=== PATIENT | female | born 1975 | race African-American/Black ===

== ENCOUNTER 2023-07-29 21:46 | Observation (INO) | payer BC, SELFPAY ==
[2023-07-29 16:59] VITALS: BMI 26.1
[2023-07-29 17:01] VITALS: BP 171/101
[2023-07-29 17:31] LABS: % Basophils 0.5 % (0-2); % Eosinophils 2.8 % (0-6); % Immature Granulocytes 0.5 % (0-0.5); % Monocytes 7.1 % (1.7-9.3); % Neutrophils 44.1 % (42.2-75.2); Absolute Eosinophils 0.2 10^3/uL (0-0.7); Absolute Lymphocytes 2.7 10^3/uL (1.2-3.4); Absolute Monocytes 0.4 10^3/uL (0.1-0.6); Absolute Neutrophils 2.7 10^3/uL (1.4-6.5); Hematocrit 40.9 % (37.0-47.0); Hemoglobin 15.1 g/dL (12.0-16.0); Mean Corp Hgb Conc. 36.9 g/dL (33.0-37.0); Mean Corpuscular Hgb 26.1 pg (27.0-31.0); Mean Corpuscular Volume 70.6 fL (81.0-99.0); Mean Platelet Volume 9.6 fL (7.4-10.4); Nucleated Red Blood Cells % 0 %; Platelet Count 488 10^3/uL (130-400); Red Blood Cell Count 5.79 10^6/uL (4.20-5.40); Red Cell Dist. Width 14.9 % (11.5-14.5)
[2023-07-29 17:36] LABS: ALT (SGPT) 29 U/L (0-35); AST (SGOT) 33 U/L (14-36); Albumin 4.1 g/dl (3.5-5.0); Alkaline Phosphatase 73 U/L (38-126); Blood Urea Nitrogen 15 mg/dl (7-17); Carbon Dioxide 29 mmol/L (22-30); Chloride 100 mmol/L (98-107); Estimated Creatinine Clearance 68 ml/min; Glucose 92 mg/dl (70-99); Potassium 3.6 mmol/L (3.5-5.1); Sodium 141 mmol/L (135-145); Total Bilirubin 0.7 mg/dl (0.2-1.3); Total Protein 6.7 g/dl (6.3-8.2); eGFR > 60.00
--- NOTE | 2023-07-29 17:37 | ED.CVA ---
History of Present Illness
General
Chief Complaint: CVA/TIA Symptoms
Source: patient
Exam Limitations: none
Time Seen by Provider: 07/29/23 17:15
Onset of Stroke Symptoms
Onset of symptoms known: Yes
Date of onset of symptoms: 07/29/23
Travel History
Have you had any contact with someone who has COVID-19?: No
Do you have any symptoms of coronavirus? Fever > 100 degrees, chills, cough, shortness of breath, sore throat, loss of taste or smell, muscle aches, or headache?: No
History of Present Illness
History of Present Illness:
See MDM
Past History
Past History
ED Past Medical History: HTN (meds dced '21)
ED Past Surgical History: Gynecological (tubal lig)
Social History
Tobacco: Non-smoker
Alcohol: None
Personal:
Phy Exam
Physical Exam
Physical Exam:
See MDM
NIH Stroke Score
Level of Consciousness: 0 - Alert
LOC questions: 0-Answers both correctly
LOC Commands: 0-Performs both correctly
Best Gaze: 0-Normal
Visual Blanca: 0=Normal, no visual loss
Facial palsy: 0=Normal, symmetrical
Motor - Right Arm: 0=No drift 10 seconds
Motor - Left Arm: 0=No drift 10 seconds
Motor - Right Le-No drift 5 seconds
Motor - Left Le-No drift 5 seconds
Limb Ataxia: 0-Absent
Sensation: 1-Mild loss
Best Language: 0-No aphasia
Dysarthria: 0-Normal
Extinction and Inattention: 0-No abnormality
Total Score:: 1
Course
Orders/Labs/Results
Orders:
Orders
07/29/23 17:01
Electrocardiogram (*1) Urgent
Reason for Study: Fatigue / Weakness
EKG- Treatment ONCE
07/29/23 17:12
Complete Blood Count/With Diff Urgent
Comprehensive Metabolic Panel Urgent
07/29/23 17:38
CT Head & Neck Angio W/wo IV Urgent
Comment:
Reason For Exam: intermittent R arm and leg weakness
NEUROLOGY CONSULT Urgent
Consulting Provider: Shey Ferrer
Was physician already notified: Yes
07/29/23 18:10
PTT Routine
Prothrombin Time Routine
07/29/23 19:51
Aspirin Chewable [Low Strength Aspirin] 324 mg PO NOW STA
Clopidogrel Bisulfate [Plavix] 75 mg PO NOW STA
Abnormal Lab Results
07/29/23
17:12
RBC 5.79 H 10^6/uL
(4.20-5.40)
MCV 70.6 L fL
(81.0-99.0)
MCH 26.1 L pg
(27.0-31.0)
RDW 14.9 H %
(11.5-14.5)
Plt Count 488 H 10^3/uL
(130-400)
07/29/23 17:12
07/29/23 17:12
Vital Signs
Initial and Last Documented VS:
Initial Vital Signs
Pulse Resp BP Pulse Ox
79 18 171/101 98
07/29/23 17:01 07/29/23 17:01 07/29/23 17:01 07/29/23 17:01
Last Documented Vital Signs
Pulse Resp BP Pulse Ox
83 26 171/101 98
07/29/23 17:45 07/29/23 17:45 07/29/23 17:01 07/29/23 17:45
MDM/Problems Addressed
Differential Diagnosis Includes:
HPI and MDM Narrative:
47-year-old female presenting with resolved 'slow speech', right arm heaviness and right leg heaviness. She noted the symptoms around 330 today and they lasted 15 minutes. Few minutes later, the symptoms recurred, again lasting only 15 minutes.
That is when she called 911. Patient found to be hypertensive on arrival. She states she is a history of high blood pressure but her doctor took her off medications 2 years ago. Patient states she still has residual tingling on the right side of
her face but denies any other symptoms
Given symptoms, there is concern for rolling TIAs. Neurology made aware who agrees with plan for CT angiogram head and neck. She is not a TNK candidate given the low NIH
Physical exam
General: Well appearing and non-toxic
HEENT: protecting airway. No visual field cut
Neck: appears supple
CV: No evidence of cyanosis. Regular rate and rhythm
Resp: No accessory muscle use
Abd: Non-distended
Extremities: No deformities
Neuro: alert. No extremity weakness. Mild sensory deficit to right side of face
Psych: Normal affect
Skin: Intact
Problems Addressed including Acute and Chronic Conditions affecting care:
1. Rolling TIAs
Acuity: acute
Prognosis: stable
Details: Symptoms appear to be self resolving. Will obtain CT angiogram head and neck. Neurology made aware
Updates
CTA negative. Patient given aspirin and Plavix. Neurology aware. Will admit
Differential Diagnosis (but not limited to): CVA, TIA
Testing considered: Carotid ultrasound will obtain CTA
Drug therapy (if applicable): OTC meds, please see d/c instruction regarding Rx drugs
Amount and/or Complexity of Data Reviewed
Clinical info obtained from: Patient
External data reviewed: N/A
Labs I independently reviewed (but not limited to): White blood cell count normal
Radiology: The CT scan was personally and independently reviewed. In addition, official CT report reviewed.
Pulse Ox: not hypoxic
EKG independently reviewed: Sinus rhythm, normal axis, no STEMI
Stone Finisher: N/A
Critical Care: N/A
Risk of Complication:
Social Determinants of health: Good social support
Discussed with other providers: Hospitalist, neurologist
Escalation of Care includes Admit/Obs: Given the rolling TIAs, will admit
Occasional wrong word or 'sound a like' substitutions may have occurred due to the inherent limitations of voice recognition software. Read the chart carefully and recognize, using context, where substitutions have occurred.
*Critical Care Note
Total Time (30-74mins, 75-104mins- exclusive of procedures): Not Applicable
ED Attending Note
-
Portions of this chart may have been created with voice recognition software.� Occasional wrong word or��sound alike� substitutions may have occurred due to the inherent limitations of voice recognition software.
Discharge Plan
Departure
Patient Disposition: Admit
Date of Disposition: 07/29/23
Time of Disposition: 19:56
Admit to: IMU
Presentation/result/management discussed w/ accepting MD/DO: Hospitalist
Discharge Problem:
Brain TIA
Referrals:
Marek Ortega MD [Family Provider] -
Interventions
Interventions:
*Risk Screen - Suicide Last Done: 07/29/23 17:17
*General Assessment Last Done: 07/29/23 17:17
*Neglect/Abuse Screening Last Done: 07/29/23 17:17
ED- Fall Risk Assessment Last Done: 07/29/23 17:17
*ED COVID-19 Vaccine History Last Done: 07/29/23 17:17
ED- Pulmonary Assessment Last Done: 07/29/23 17:17
ED- Neurological Assessment Last Done: 07/29/23 17:17
ED- Cardiac Assessment Last Done: 07/29/23 17:17
ED Swallowing Screen Last Done: 07/29/23 17:17
[2023-07-29 18:00] VITALS: BP 146/97
[2023-07-29 18:26] LABS: APTT 25.1 Sec (23.4-35.0); INR 1.04; PT 13.8 Sec (11.4-14.6)
--- NOTE | 2023-07-29 20:25 | HPS.HSE ---
Addendum entered and electronically signed by Joey Gaming DO 07/29/23 22:06:
Patient seen and examined independently. Agree with findings and plan as set forth by HELIO Paris.
Patient is a 47y F with PMH significant for hypertension - no longer on medications - who presents to ED c/o RUE 'heaviness' and pressure, R facial tingling and numbness and R ocular pressure / headache. Patient states that symptoms occurred
around 3:30 PM and lasted for a few minutes. She drank some milk and her symptoms resolved. They returned only a few minutes later and this time lasted for about 15 minutes. She called EMS at that time. Symptoms have since fully resolved again.
Patient denies any prior history of similar symptoms. She states that she was exposed a few weeks ago to a patient with RSV. Since that time she has been having cough / congestion, posterior headache / neck stiffness and fatigue.
She was treated with a 5-day course of prednisone and felt better while on it. Symptoms returned soon after this was completed however.
Patient was most recently started on amoxicillin for prescribed 10 days course for her symptoms. She is on Day # 3.
Ass:
R Numbness / Tingling
URI - Likely Viral
Hypertension
GERD
Plan:
Observe overnight for further evaluation and treatment.
Follow frequent neurologic exams - q2 hours per Neuro recommendations.
MRI brain and Neuro evaluation in the AM.
ASA / Plavix for now.
Monitor BP and resume PO medications if needed for BP control (already much improved from initial arrival).
Would hold further abx for what is likely a viral respiratory infection.
Monitor for any new / recurrent symptoms.
Original Note:
Family Physician
-
Family Physician: Marek Ortega
Chief Complaint
-
right sided weakness
History of Present Illness
47 year old with PMH for HTN presented to us with right sided weakness, numbness, heaviness tingling since this afternoon. stated slurred speech. she could not clearly see with her right eye. first episode lasted for 15 minutes and after 5 minutes
she felt it again which lasted for 10minutes. denied MCMILLAN, dizzy. denied chest pain, sob. denied abdominal pain, n,v, d. denied dysuria or hematuria.
patient was prednisone for five days for URI,sinusitis. now she is on amoxicillin
CTA negative. recived asa and plavix in ER. admitting for further management.
Medical History
Past Medical History
Past Medical History: Reports Other
Additional Past Medical History:
htn
GERD
Past Surgical History: Reports Other
Additional Past Surgical History:
tubal ligation
Social History
Tobacco: Non-smoker
Alcohol: None
Drug: None
Personal:
Living: With Family
Family History
Family History: Not pertinent
Allergies / Home Medications
Allergies reflects when Allergies were last updated in [facility].
Home Medications with original date entered in [facility]
Allergy/Medication List:
Allergies
Allergy/AdvReac Type Severity Reaction Status Date / Time
No Known Allergies Allergy Verified 07/29/23 17:06
Review of Systems
-
Constitutional: Reports No Symptoms
EENT: Reports No Symptoms
Respiratory: Reports No Symptoms
Cardiac: Reports No Symptoms
Abdomen/GI: Reports No Symptoms
: Reports No Symptoms
Musculoskeletal: Reports No Symptoms
Skin: Reports No Symptoms
Neurological: Reports Weakness, Numbness and Other (right sided)
Endocrine: Reports No Symptoms
Hematologic/Lymphatic: Reports No Symptoms
Psych: Reports No Symptoms
Physical Exam
Vital Signs
Vital Signs
Pulse Resp BP Pulse Ox
83 26 171/101 98
07/29/23 17:45 07/29/23 17:45 07/29/23 17:01 07/29/23 17:45
Physical Exam
General: Well Developed, Well Nourished and No Apparent Distress
HEENT: NormoCephalic, Moist mucous membranes and Atraumatic
Respiratory: Clear
Cardiac: S1/S2 and Regular Rhythm; No Murmur or Rub
GI: Soft, Non Tender, Non Distended and Normal Bowel Sounds; No Organomegaly
Rectal: Deferred by Provider
Musculoskeletal: No Clubbing, No Cyanosis and No Edema
Skin: No Rash
Neuro: AO x 3 and Nonfocal/grossly intact
Psych: Calm
Laboratory Results
-
07/29/23 17:12
07/29/23 17:12
Laboratory Results
PT 13.8 Sec (11.4-14.6) 07/29/23 18:10
INR 1.04 07/29/23 18:10
APTT 25.1 Sec (23.4-35.0) 07/29/23 18:10
Total Bilirubin 0.7 mg/dl (0.2-1.3) 07/29/23 17:12
AST 33 U/L (14-36) 07/29/23 17:12
ALT 29 U/L (0-35) 07/29/23 17:12
Alkaline Phosphatase 73 U/L (38-126) 07/29/23 17:12
Data Reviewed
-
CT Scan: Report Reviewed by me
Lab Data: Labs Reviewed by me
Impression/Plan
-
#right sided weakness r/o acute CVA/TIA
-CTA negative
-aspirin, Plavix continued
-a1c.lipid profile
-statin continued
-allow permissive HTN
-PT/OT
-neuro consult
#HTN
-BP elevated in ER
-hydralazine prn if BP
#GERD
-PPI continued
#URI
-was on prednisone
-amoxicillin held
#DVT prophylaxis
-scd
#CODE status
-full
[2023-07-29] MEDS: LOW STRENGTH ASPIRIN 324 MG PO (20:36)
[2023-07-29] MEDS: PLAVIX 75 MG PO (20:36)
[2023-07-29 21:00] VITALS: BP 141/96
[2023-07-29 22:00] VITALS: BP 129/93
[2023-07-29 22:38] VITALS: BP 144/95; BMI 25.1
--- NOTE | 2023-07-29 22:50 | PTCARENOTE ---
Assumed care of Pt from ED RN. NIHSS handoff done at bed side. Pt AAOX3 appears to be comfortable, Vitals stable at this time. Assessment care and vitals as charted.
[2023-07-29] MEDS: LIPITOR 40 MG PO (23:04)
[2023-07-30] VITALS (10 sets, daily range): BP systolic 124–139; BP diastolic 63–109; PULSE 70–72; BMI 25.1
[2023-07-30 05:24] LABS: Hematocrit 42.4 % (37.0-47.0); Hemoglobin 14.8 g/dL (12.0-16.0); Mean Corp Hgb Conc. 34.9 g/dL (33.0-37.0); Mean Corpuscular Hgb 26.1 pg (27.0-31.0); Mean Corpuscular Volume 74.8 fL (81.0-99.0); Platelet Count 404 10^3/uL (130-400); Red Blood Cell Count 5.67 10^6/uL (4.20-5.40); Red Cell Dist. Width 14.7 % (11.5-14.5)
[2023-07-30 05:50] LABS: Blood Urea Nitrogen 11 mg/dl (7-17); Calcium 9.7 mg/dl (8.4-10.2); Carbon Dioxide 31 mmol/L (22-30); Chloride 103 mmol/L (98-107); Estimated Creatinine Clearance 68 ml/min; Glucose 88 mg/dl (70-99); HDL Cholesterol 52 mg/dl; LDL Cholesterol, Calculated 58 mg/dl; Potassium 4.4 mmol/L (3.5-5.1); Sodium 138 mmol/L (135-145); Total Cholesterol 123 mg/dl (50-199); Triglyceride 68 mg/dl (10-149); Very Low Density Lipoprotein 13 mg/dl (0-30); eGFR > 60.00
[2023-07-30] MEDS: LOW STRENGTH ASPIRIN 81 MG PO (10:03)
[2023-07-30] MEDS: PLAVIX 75 MG PO (10:04)
[2023-07-30] MEDS: PROTONIX 40 MG PO (10:04)
--- NOTE | 2023-07-30 10:19 | PTOTSP ---
Speech Therapy
Presentation: Patient was fully oriented and willing to participate. Patient shared that her tongue on the right side continues to have a 'tingling' feeling which does not impact her speech or swallowing.
Swallowing Function: Patient was observed with several bites of regular consistency solids and sips (straw) of thin liquids in which patient appeared to tolerate as he did not exhibit any overt clinical s/sx of aspiration or difficulty with
mastication. Patient denied any dysphagia complaints.
Of note, patient handed [employer] an antibiotic pill bottle from her PCP which she takes 2 times a day. Did not take the medications 07/29 evening. [employer] alerted RN and gave the medications to RN.
Recommendations:
1) Continuation of regular consistency solids and thin liquids
2) Aspiration precautions
3) Medications as tolerated
Plan: [employer] will continue to follow x1 to ensure tolerance of PO recommendations and MRI findings (ordered 07/30); pending hospitalization.
--- NOTE | 2023-07-30 11:25 | PTCARENOTE ---
NIHSS completed =0 she does admit to tingly feeling on right side of tongue. No numbness. +Sensation Bilaterally whole body. See NIHss flowsheet.
--- NOTE | 2023-07-30 13:02 | W.PN.HOSP.TC ---
Today's Communication/Plan
-
Neuro consult pending
Monitor neuro symptoms
Assessment / Plan
Assessment / Plan
47 year old with right sided weakness, numbness, heaviness tingling since this afternoon. stated slurred speech. she could not clearly see with her right eye. first episode lasted for 15 minutes and after 5 minutes she felt it again which lasted for
10minutes. denied MCMILLAN, dizzy. denied chest pain, sob. denied abdominal pain, n,v, d. denied dysuria or hematuria.
1. right sided weakness r/o acute CVA/TIA
-CTA negative, but has possible venous finding
-aspirin, Plavix continued
-a1c.lipid profile
-statin continued
-allow permissive HTN
-PT/OT
-neuro consult pending - if venous finding is real, may need workup for that
2. essential HTN, chronic
-BP elevated in ER
-hydralazine prn if SBP>180
3. GERD, chronic
-PPI continued
4. URI
-was on prednisone
-amoxicillin held
-monitor symptoms
5. DVT prophylaxis
-scd
CODE status -full
Anticipated Discharge: 24 - 48 hours
Subjective/Interval History
-
Date of Service: July 30, 2023
Continues to have tingling on side of right face
Objective Data
-
Labs:
Laboratory Results
07/30/23
04:51
WBC 5.0
Hgb 14.8
Hct 42.4
Plt Count 404 H
Sodium 138
Potassium 4.4
Chloride 103
Carbon Dioxide 31 H
BUN 11
Creatinine 0.9
Glucose 88
Calcium 9.7
Vital Signs:
Vital Signs
Temp Pulse Resp BP Pulse Ox
97.9 F 70 15 135/98 98
07/30/23 11:25 07/30/23 10:02 07/30/23 10:02 07/30/23 10:02 07/30/23 04:00
I&O
07/29/23 07/30/23 07/31/23
06:59 06:59 06:59
Intake Total 440 / 440
Balance 440 / 440
Review of Systems
-
History Source: Patient
All other systems: Reviewed and negative
Physical Exam
-
General: Well Developed, Well Nourished, No Apparent Distress and Comfortable
HEENT: Normocephalic, Atraumatic and Moist Mucous Membranes
Respiratory: Clear to Auscultation
Cardiac: Regular Rhythm and S1/S2
GI: Soft, Nontender and Nondistended
Musculoskeletal: No Clubbing, No Cyanosis and No Edema
Skin: Warm and Dry; Negative Rash or Ulcers
Neuro: Awake, Alert, Oriented and AO x 3
Psych: Calm
Data Reviewed
-
Labs: Labs Reviewed by me
--- NOTE | 2023-07-30 14:13 | CON.NEURO4 ---
Consultation - Neurology 4
-
CONSULTING PHYSICIAN: Carissa
REFERRING PHYSICIAN: Brady
DICTATED BY: Carissa
DATE/TIME OF REQUEST: 07/29/23 in the late evening
DATE/TIME OF CONSULTATION: 07/30/23
Reason for Consultation: stroke
History of Present Illness:
47 year-old female with a PMH of hypertension off meds since 2020 who presented yesterday for RUE heaviness and pressure with R facial tingling and numbness and R ocular pressure/headache. Symptoms began around 330pm and lasted a few minutes. They
returned a few minutes later, lasting 15 mins. She called EMS. The symptoms then resolved. She was admitted to IMU for q2 neurochecks in case her symptoms returned. She notes that her only residual symptoms currently are R tongue tingling. No
prior history of stroke or TIA. She had a migraine last week with some photophobia. No personal or family history of blood clots/hypercoagulable state. Both parents have had strokes.
CTA head/neck was normal. LDL was 58. No smoking history.
Past Medical History: htn--medications discontinued in 2020, ?migraine
Surgical History: tubal ligation
Family History: +h/o stroke in both parents--mom in her 60s, father in his 70s; no family history of hypercoagulable state
Social History: nonsmoker, no ETOH use, , works as a mental health nurse practitioner in [place]
Allergies
No Known Allergies Allergy (Verified 07/29/23 17:06)
Home Medications Table - record
Medication Instructions Recorded Confirmed
amoxicillin 875 mg-potassium 1 tab PO BID Infection 07/29/23 07/29/23
clavulanate 125 mg tablet
omeprazole 20 mg capsule,delayed 20 mg PO DAILY GERD 07/29/23 07/29/23
release
Review of Symptoms:
Patient denies any fever, headache, chest pain, shortness of breath, GI or symptoms.
�Per the HPI.�All systems are reviewed negative except above.
Vital Signs
Temp Pulse Resp BP Pulse Ox
97.9 F 70 15 135/98 98
07/30/23 11:25 07/30/23 10:02 07/30/23 10:02 07/30/23 10:02 07/30/23 04:00
Lab Results
07/30/23 04:51
07/30/23 04:51
PT 13.8 Sec (11.4-14.6) 07/29/23 18:10
INR 1.04 07/29/23 18:10
APTT 25.1 Sec (23.4-35.0) 07/29/23 18:10
Sodium 138 mmol/L (135-145) 07/30/23 04:51
Potassium 4.4 mmol/L (3.5-5.1) 07/30/23 04:51
BUN 11 mg/dl (7-17) 07/30/23 04:51
Glucose 88 mg/dl (70-99) 07/30/23 04:51
Calcium 9.7 mg/dl (8.4-10.2) 07/30/23 04:51
LDL Cholesterol, Calc 58 mg/dl 07/30/23 04:51
HgbA1C pending
Physical Exam:
The patient is afebrile, heart sounds S1 and S2 are regular, and chest is clear to auscultation bilaterally.
NIH Stroke Scale:
I performed the NIH stroke scale on the patient on 07/30/23 at 1300. The patient scored 0 points on the NIH stroke scale assessment.
Neurologic Examination:
The patient is awake, alert and oriented x 3. She is able to follow commands and answer questions appropriately. There is no aphasia or dysarthria. On cranial nerve assessment, pupils are 3 mm bilateral, round and reactive to light and
accommodation. Visual rodríguez are full. Extraocular movements are intact. Facial sensations are intact and bilaterally symmetrical, there is no facial asymmetry. Hearing is intact bilaterally to normal conversation volume. Tongue palate and uvula
are midline. Sternocleidomastoid strengths are full bilaterally. Motor strengths are 5/5 bilateral upper and lower extremities on medical research [place] scale. There is no drift or involuntary movement noted. Deep tendon reflexes are 2+ bilateral
upper and lower extremities and Babinski is absent bilaterally. Sensations of pain, touch, temperature and vibration are intact and bilaterally symmetrical. There was no extinction noted on double simultaneous stimulation. Coordination is intact by
finger to nose bilaterally.
Neuro Imaging:
MRI brain:
'No acute infarct.
Altered signal intensity within superficial cortical cerebral veins near the convexity, as well as along the posterior aspect of the superior sagittal sinus. This may be related to slow flow. Cerebral venous thrombus cannot be excluded in the proper
clinical setting. If indicated, further evaluation/follow-up MR venography may be considered.'
CTA head/neck:
normal
Impression:
LESA PAINTING is a 47 year old F who has presented to the hospital with RUE 'heaviness' and pressure like sensation, R facial tingling and numbness as well as R ocular pressure and headache. All symptoms have resolved beyond a sensation of
tingling on the right side of her tongue.
Differentials for the patient's presentation include:
1. TIA
2. complicated migraine
3. hypertensive urgency with focal neurological deficits
Patient has the following risk factors for their symptoms: htn
IV Tenecteplase/IAT candidacy: not a candidate due to resolution of symptoms; CTA without LVO
Recommendations:
-admitted to IMU for close monitoring, neurochecks q2hrs to evaluate for recurrence of symptoms/given fluctuation of symptoms; has remained stable
-MRV--if negative, can d/c
-MRI brain and CTA as above; no acute stroke seen as cause for symptoms
-BP goal is normotension. BP elevated initially here, could be cause of symptoms; instructed to check daily and f/u closely with PCP Dr. Ortega.
-loaded with ASA/Plavix; continue ASA 81mg daily and Plavix 75mg daily x 21 days, then d/c Plavix, continue ASA 81mg daily.
- Check hemoglobin A1C. Goal is normoglycemia.
- Okay to leave off statin for now; LDL is good at 58.
-needs echo as outpatient
-PT/OT/ST evaluations
-DVT prophylaxis
-continue neurochecks
Should see Dr. Daniel in our clinic.
Discussed patient care with: patient, Dr. Abreu, Dr. Salas, nursing, MRI techs
[2023-07-30 14:45] LABS: Glycohemoglobin (HgbA1c) 5.5 % (4.0-5.6)
--- NOTE | 2023-07-30 16:23 | CM ---
funeral home general manager reviewed patient's chart and met with patient and patient lives with her spouse and children in a multilevel home, patient is independent with adl's and ambulation, no dme, patient drives, patient works, patient has a prescription plan
and uses [facility] pharmacy.
PCP: Dr. Ortega
Plan; Home no needs when stable.
[2023-07-30] MEDS: LIPITOR 40 MG PO (17:27)
--- NOTE | 2023-07-30 20:55 | PTCARENOTE ---
Received pt from josie GARCIA. Pt is AAOx3, Q4 neuro checks, [facility] qshift (see worklist). NSR on the monitor. On RA, lungs clear. BRP. Pt is laying comfortable in bed with at bedside. Call reyna in reach.
[2023-07-31] VITALS (7 sets, daily range): BP systolic 118–142; BP diastolic 72–97
[2023-07-31] MEDS: TYLENOL PO (04:54)
[2023-07-31 05:13] LABS: Hematocrit 41.1 % (37.0-47.0); Hemoglobin 14.8 g/dL (12.0-16.0); Mean Corpuscular Hgb 26.1 pg (27.0-31.0); Mean Corpuscular Volume 72.5 fL (81.0-99.0); Mean Platelet Volume 9.5 fL (7.4-10.4); Platelet Count 411 10^3/uL (130-400); Red Blood Cell Count 5.67 10^6/uL (4.20-5.40); White Blood Cell Count 4.9 10^3/uL (4.8-10.8)
[2023-07-31 05:43] LABS: Blood Urea Nitrogen 22 mg/dl (7-17); Calcium 9.7 mg/dl (8.4-10.2); Carbon Dioxide 27 mmol/L (22-30); Chloride 101 mmol/L (98-107); Estimated Creatinine Clearance 41 ml/min; Glucose 98 mg/dl (70-99); Potassium 4.6 mmol/L (3.5-5.1); Sodium 138 mmol/L (135-145); eGFR 42.45
--- NOTE | 2023-07-31 07:42 | W.PN.NEURO.1 ---
Today's Communication / Plan
-
-Would place on aspirin 81 mg daily alone, no clopidogrel given patient's report of previous gastric ulcer
-Not recommending statin given LDL is in 50's range and no significant atherosclerotic disease on CTA head and neck, no prior strokes on MRI brain
-BP checks at home
-Neurologic checks and NIH scales while here in hospital
-Cardiac telemetry
-Check TTE with bubble given possible TIA in patient age 47
-Neurology outpatient follow up in 4-6 weeks
Call with questions and concerns will follow as needed
Neuro Assessment/Plan
Assessment
47 year old woman with hypertension presenting with 2 episodes of right arm paresthesia, some right face paresthesia, minor headache, symptoms resolved.
Had had recent URI treated with augmentin and prednisone.
Some high BP's to 170's, not on any BP medication for past 2 years.
Normal exam now and feeling better
Reviewed MRI MRA and MRV which show no stroke, I do not see any venous sinus or cortical thrombosis, no infarct, no stenosis on CTA head or neck
Ddx:
Hypertensive neurologic symptoms
Migraine headache
TIA is possible although patient relatively young, hypertension as risk factor, family history of stroke at middle age in parents
Subjective/Objective
Subjective Data
Date of Service: July 31, 2023
No acute events, feeling improved, resolved paresthesia of right arm, no headache, vision is normal.
Objective Data
Vital Signs
Temp Pulse Resp BP Pulse Ox
97.3 F 90 18 119/92 98
07/31/23 03:05 07/31/23 06:00 07/31/23 06:00 07/31/23 06:00 07/31/23 04:44
Lab Results
07/31/23 04:50
07/31/23 04:50
PT 13.8 Sec (11.4-14.6) 07/29/23 18:10
INR 1.04 07/29/23 18:10
APTT 25.1 Sec (23.4-35.0) 07/29/23 18:10
Sodium 138 mmol/L (135-145) 07/31/23 04:50
Potassium 4.6 mmol/L (3.5-5.1) 07/31/23 04:50
BUN 22 mg/dl (7-17) H 07/31/23 04:50
Glucose 98 mg/dl (70-99) 07/31/23 04:50
Calcium 9.7 mg/dl (8.4-10.2) 07/31/23 04:50
LDL Cholesterol, Calc 58 mg/dl 07/30/23 04:51
Patient Allergies
No Known Allergies Allergy (Verified 07/29/23 17:06)
Review of Systems
-
History Source: Patient
All other systems: Reviewed and negative
Constitutional: No Symptoms
EENT: No Symptoms Reported
Respiratory: No Symptoms
Cardiac: No Symptoms
Abdomen/GI: No Symptoms
Genitourinary: No Symptoms
Musculoskeletal: No Symptoms
Skin: No Symptoms
Neuro: No Symptoms
Endocrine: No Symptoms
Hematologic / Lymphatic: No Symptoms
Allergy / Immunology: No Symptoms
Physical Exam
-
General: No Apparent Distress
Eyes: No Ptosis
HEENT: Normocephalic
Neck: No Bruits Bilaterally
Respiratory: Clear to Auscultation
GI: Normal Bowel Sounds
Skin: Unremarkable
Extremities: No Clubbing
Extended Neurological Exam
Mood & Affect: Mood Unremarkable
Attention Span & Concentration: Awake, Alert and Interactive
Memory: Unremarkable
Tremor: Hand Tremor Absent
Involuntary Movement: None
Speech: Quality Unremarkable and Quantity Unremarkable; Negative Expressive Aphasia or Receptive Aphasia
Cranial Nerve II: Left Eye: Pupillary Reactivity Unremarkable, Pupillary Size Unremarkable and Visual Blanca Intact
Cranial Nerve II: Right Eye: Pupillary Reactivity Unremarkable, Pupillary Size Unremarkable and Visual Blanca Intact
Cranial Nerves III, IV, : Extraocular Movement: Extraocular Movement Full in all Directions
Cranial Nerve VII: Facial Symmetry: Normal Facial Symmetry
Muscle Strength, Overall: Full Throughout
Muscle Bulk & Tone: Bulk Unremarkable
Pronator Drift: No Drift in Upper Extremities
Deep Tendon Reflexes: Trace Throughout
Touch Sensation: Unremarkable
Coordination: Qyanjy-gbfw-djruvy Testing Unremarkable
Modified [place] Score (MRS)
-
MRS Score:
Data Reviewed
-
CT-A: Report Reviewed and Image Reviewed
CT Head: Report Reviewed and Image Reviewed
MRI Head: Report Reviewed and Image Reviewed
MRA Head: Report Reviewed and Image Reviewed
Labs: Report Reviewed
[2023-07-31] MEDS: LOW STRENGTH ASPIRIN 81 MG PO (09:03)
[2023-07-31] MEDS: PROTONIX 40 MG PO (09:03)
[2023-07-31] MEDS: PLAVIX PO (09:03)
[2023-07-31 12:14] LABS: Urine Albumin Negative (Neg - Trace); Urine Bilirubin Negative (Negative); Urine Character Clear (Clear); Urine Color Yellow; Urine Glucose Negative (Negative); Urine Ketone Negative (Negative); Urine Leukocyte Negative (Negative); Urine Nitrite Negative (Negative); Urine Occult Blood Negative (Negative); Urine Urobilinogen Negative (Neg - 1+)
--- NOTE | 2023-07-31 13:15 | W.PN.HOSP.TC ---
Today's Communication/Plan
-
Urine studies pending
dc plavix
cont asa
may need IVF
tx out of IMU
Assessment / Plan
Assessment / Plan
47 year old with right sided weakness, numbness, heaviness tingling since this afternoon. stated slurred speech. she could not clearly see with her right eye. first episode lasted for 15 minutes and after 5 minutes she felt it again which lasted for
10minutes. denied MCMILLAN, dizzy. denied chest pain, sob. denied abdominal pain, n,v, d. denied dysuria or hematuria.
right sided weakness likely 2/2 TIA vs. hypertensive encephalopathy versus low likelihood of migraine
-CTA negative. MRI brain negative. MRI negative for venous thrombosis
-aspirin continued on Plavix discontinued
-a1c.lipid profile-can no need to start statin
-ECHO noted-negative for PFO/Bubble study
LEONIE likely prerenal versus renal versus postrenal
Check UA�negative for infection
Urine lites pending
Bladder scan
If retaining to consider bladder ultrasound
Check urine eosinophils as on PPI
essential HTN, chronic
-monitor. BP well controlled 119/92
GERD, chronic
-PPI continued
URI
-was on prednisone
-amoxicillin held
-monitor symptoms
DVT prophylaxis -scd
CODE status -full
Anticipated Discharge: Within 24 hours
Subjective/Interval History
-
Date of Service: July 31, 2023
denies any numbing or tingling
denies dysuria or urgency or flank pain
Objective Data
-
Labs:
Laboratory Results
07/31/23
04:50
WBC 4.9
Hgb 14.8
Hct 41.1
Plt Count 411 H
Sodium 138
Potassium 4.6
Chloride 101
Carbon Dioxide 27
BUN 22 H
Creatinine 1.5 H
Glucose 98
Calcium 9.7
Vital Signs:
Vital Signs
Temp Pulse Resp BP Pulse Ox
98.3 F 90 18 119/92 98
07/31/23 07:30 07/31/23 06:00 07/31/23 06:00 07/31/23 06:00 07/31/23 04:44
I&O
07/30/23 07/31/23 08/01/23
06:59 06:59 06:59
Intake Total 440 / 440 200 / 200
Balance 440 / 440 200 / 200
Physical Exam
-
General: Well Developed, Well Nourished, No Apparent Distress and Comfortable
HEENT: Normocephalic, Atraumatic and Moist Mucous Membranes
Respiratory: Clear to Auscultation
Cardiac: Regular Rhythm and S1/S2
GI: Soft, Nontender and Nondistended
Musculoskeletal: No Clubbing, No Cyanosis and No Edema
Skin: Warm and Dry; Negative Rash or Ulcers
Neuro: Awake, Alert, Oriented and AO x 3
Psych: Calm
[2023-07-31 13:32] LABS: Body Fluid for Eosinophils No Eosinophils seen; Urine Sodium 74 mmol/L (30-90)
[2023-07-31] MEDS: LR 1000 IV (15:56)
--- NOTE | 2023-07-31 16:07 | PTCARENOTE ---
Received Patient from [facility] [id number] awake alert and oriented . Able to make needs known . IVF up at [facility] at 125cc/hr infusing via left hand int. Oriented to room . Call reyna in reach. Tele Normal Sinus rhythm.
[2023-07-31] MEDS: LIPITOR 40 MG PO (17:01)
[2023-08-01 03:15] VITALS: BP 132/91
[2023-08-01] MEDS: LR 1000 IV (03:30)
[2023-08-01 07:30] VITALS: BP 136/74
[2023-08-01] MEDS: PROTONIX 40 MG PO (08:07)
[2023-08-01] MEDS: LOW STRENGTH ASPIRIN 81 MG PO (08:07)
[2023-08-01] MEDS: TYLENOL 650 MG PO (08:08)
[2023-08-01 08:48] LABS: Blood Urea Nitrogen 19 mg/dl (7-17); Carbon Dioxide 30 mmol/L (22-30); Chloride 105 mmol/L (98-107); Estimated Creatinine Clearance 61 ml/min; Glucose 88 mg/dl (70-99); Potassium 4.2 mmol/L (3.5-5.1); Sodium 138 mmol/L (135-145); eGFR > 60.00
--- NOTE | 2023-08-01 11:04 | W.PN.HOSP.TC ---
Today's Communication/Plan
-
dc home
Assessment / Plan
Assessment / Plan
47 year old with right sided weakness, numbness, heaviness tingling since this afternoon. stated slurred speech. she could not clearly see with her right eye. first episode lasted for 15 minutes and after 5 minutes she felt it again which lasted for
10minutes. denied MCMILLAN, dizzy. denied chest pain, sob. denied abdominal pain, n,v, d. denied dysuria or hematuria.
right sided weakness likely 2/2 TIA vs. hypertensive encephalopathy versus low likelihood of migraine
-CTA negative. MRI brain negative. MRI negative for venous thrombosis
-aspirin continued on Plavix discontinued
-a1c.lipid profile-can no need to start statin
-ECHO noted-negative for PFO/Bubble study
LEONIE likely prerenal
Check UA�negative for infection
Urine analysis with FENA pre-renal
Urine eosinophils negative
UA negative for any cast
Creatinine trended down to baseline.
Recommended outpatient BMP with primary doctor.
essential HTN, chronic
-monitor. BP well controlled recommend outpatient follow-up
GERD, chronic
-PPI continued
URI
-was on prednisone
-amoxicillin held. Antibiotics held. Afebrile. Can probably discontinue it.
-monitor symptoms
DVT prophylaxis -scd
CODE status -full
More than 30 minutes spent in discharge including
Final examination of the patient
Summarizing hospital stay
Instructions for continuing care to all relevant caregivers
Preparation of discharge records, prescriptions, and referral forms
Total time spent (in minutes): 42
Anticipated Discharge: Today
Subjective/Interval History
-
Date of Service: August 01, 2023
Feeling better
Denies any numbing or tingling sensation
Objective Data
-
Labs:
Laboratory Results
08/01/23
07:06
Sodium 138
Potassium 4.2
Chloride 105
Carbon Dioxide 30
BUN 19 H
Creatinine 1.0
Glucose 88
Calcium 9.0
Vital Signs:
Vital Signs
Temp Pulse Resp BP Pulse Ox
98.0 F 86 16 136/74 100
08/01/23 07:30 08/01/23 07:30 08/01/23 07:30 08/01/23 07:30 08/01/23 07:30
I&O
07/31/23 08/01/23 08/02/23
06:59 06:59 06:59
Intake Total 200 / 200 1894
Balance 200 / 200 1894
Physical Exam
-
General: Well Developed, Well Nourished, No Apparent Distress and Comfortable
HEENT: Normocephalic, Atraumatic and Moist Mucous Membranes
Respiratory: Clear to Auscultation
Cardiac: Regular Rhythm and S1/S2
GI: Soft, Nontender and Nondistended
Musculoskeletal: No Clubbing, No Cyanosis and No Edema
Skin: Warm and Dry; Negative Rash or Ulcers
Neuro: Awake, Alert, Oriented and AO x 3
Psych: Calm
--- NOTE | 2023-08-01 11:08 | W.DCSUMMARY ---
Discharge Summary
Discharge Data
Date of Admission: 07/29/23
Date of Discharge: 08/01/23
-
Pending Results: No
Hospital Course
47-year-old female with no significant past medical history who is presenting from home with complaint of right upper extremity heaviness and pressure, right facial tingling and numbness and right ocular pressure/headache. CT head was negative for
acute pathology. CT angiogram of the head and neck was negative for acute stenosis or aneurysm. Patient underwent MRI of the brain which showed No acute infarct.Altered signal intensity within superficial cortical cerebral veins near the
convexity, as well as along the posterior aspect of the superior sagittal sinus. This may be related to slow flow. Cerebral venous thrombus cannot be excluded in the proper clinical setting. If indicated, further evaluation/follow-up MR venography
may be considered. Underwent MRV No convincing evidence for large venous sinus or prominent cortical vein thrombosis. Dominant right transverse sinus. Probable scattered slow flow within the superior sagittal sinus. Neurology was following the
patient. Aspirin will be continued. Plavix was discontinued. Highest probability of TIA versus migraine headache versus hypertensive encephalopathy. Patient blood pressure was elevated on admission. Blood pressure is starting to slow down and
patient stated she stopped taking blood pressure meds few years ago. Patient was working to check daily blood pressure as her blood pressure at times was within normal limit. Patient was also found to LEONIE and urine electrolytes with FEna and was
started on IV fluids. Patient creatinine down trended to normal. Patient will be discharged home with recommendation to follow with primary doctor for blood pressure management and repeat bmp blood work in 1 week.
Discharge Plan
-
Patient Disposition: Home (Routine Discharge)
Discharge Diagnosis/Procedures: right sided weakness likely 2/2 TIA vs. hypertensive encephalopathy versus migraine
Acute kidney injury
Condition: Fair
Diet: As tolerated and Regular
Activity: As tolerated
Driving Restrictions: As prior to admission
Blood Work: Recommend BMP in 1 week with primary doctor.
Activity Restrictions/Additional Instructions:
Recommend to check blood pressure daily at home.
Referrals:
Marek Ortega MD [Family Provider] - in less than 1 week (f/u for blood pressure eval. )
Rich Umanzor MD [Non-Admitting Privileges] - in four to six weeks (call to make appt. )
Prescriptions:
New
aspirin 81 mg capsule
81 mg PO DAILY Qty: 30 0RF
Continued
omeprazole 20 mg Capsule,Delayed Release(Dr/Ec)
20 mg PO DAILY
Discontinued
amoxicillin-pot clavulanate 875-125 mg Tablet
1 tab PO BID
Discharge Orders:
Discharge Patient (As Directed); Ordered 08/01/23
Ordered By: Mode Bagley
Discharge Date and Time
Discharge Date/Time: 08/01/23 12:29
[2023-08-01] MEDS: FLUZONE QUAD 2023-2024 SYRINGE 0.5 ML IM (11:37)
--- NOTE | 2023-08-01 12:18 | CM ---
Patient was provided with OBS level of care, and directed to call insurance to review her copay costs, plan is home today, no needs.
Plan; Home no needs.
== END 2023-08-01 12:29 | disposition home or self-care (01) ==
LOC: 4 WEST ACU 21:46
PROVIDERS: Registered Nurse; ADMITTING PHYSICIAN Hospitalist; ATTENDING PHYSICIAN Hospitalist; CONSULT PHYSICIAN Psychiatry & Neurology Neurology; EMERGENCY PHYSICIAN Student in an Organized Health Care Education/Training Program; FAMILY PHYSICIAN Family Medicine
DX: R53.1 Weakness (principal); R20.2 Paresthesia of skin; I10 Essential (primary) hypertension; R47.81 Slurred speech; N17.9 Acute kidney failure, unspecified; K21.9 Gastro-esophageal reflux disease without esophagitis; J06.9 Acute upper respiratory infection, unspecified; Z23 Encounter for immunization; Z87.11 Personal history of peptic ulcer disease; Z82.3 Family history of stroke
CPT/HCPCS: 70496; 70498; 70544; 70551; 80048; 80053; 80061; 81003; 81099; 82570; 83036; 84300; 85025; 85027; 85610; 85730; 90686; 92610; 93005; 93306; 97161; 97165; 99285; G0008; G0378; Q9967

== ENCOUNTER → 2023-10-18 06:40 | Day surgery (SDC) | payer BC, SELFPAY | LOC: GI 06:40 | PROVIDERS: ATTENDING PHYSICIAN Internal Medicine Gastroenterology | DX: Z12.11 Encounter for screening for malignant neoplasm of colon (principal); K64.0 First degree hemorrhoids; R10.33 Periumbilical pain; K31.89 Other diseases of stomach and duodenum; K63.5 Polyp of colon; D12.0 Benign neoplasm of cecum; K62.1 Rectal polyp; K29.50 Unspecified chronic gastritis without bleeding | CPT/HCPCS: 45385; 45380; 43239; 88305; 88342 ==

== ENCOUNTER → 2024-02-13 18:49 | Outpatient (REF) | payer BC, SELFPAY | LOC: WDC 18:49 | PROVIDERS: ATTENDING PHYSICIAN Obstetrics & Gynecology Gynecology | DX: Z12.31 Encounter for screening mammogram for malignant neoplasm of breast (principal); Z01.419 Encounter for gynecological examination (general) (routine) without abnormal findings | CPT/HCPCS: 77063; 77067 ==

== ENCOUNTER → 2024-04-01 13:59 | Outpatient (REF) | payer BC, SELFPAY | LOC: PAVMRI 13:59 | PROVIDERS: ATTENDING PHYSICIAN Psychiatry & Neurology Neurology; FAMILY PHYSICIAN Family Medicine | DX: M54.16 Radiculopathy, lumbar region (principal) | CPT/HCPCS: 70551 ==

== ENCOUNTER → 2025-04-08 19:30 | Outpatient (REF) | payer BC, SELFPAY | LOC: WDC 19:30 | PROVIDERS: ATTENDING PHYSICIAN Obstetrics & Gynecology Gynecology; FAMILY PHYSICIAN Family Medicine | DX: Z12.39 Encounter for other screening for malignant neoplasm of breast (principal); Z12.31 Encounter for screening mammogram for malignant neoplasm of breast | CPT/HCPCS: 77063; 77067 ==

== ENCOUNTER → 2025-05-05 09:27 | Outpatient (REF) | payer BC, SELFPAY | LOC: RAD 09:27 | PROVIDERS: ATTENDING PHYSICIAN Specialist | DX: M54.2 Cervicalgia (principal) | CPT/HCPCS: 72052 ==